=== PATIENT | male | born 1930 | race Caucasian/White ===

== ENCOUNTER 2016-11-04 12:40 | Inpatient (IN) | payer OTHER ==
[~2016-11-04] VITALS: Ht 175.3 cm; Wt 58.8 kg
--- NOTE | ~2016-11-04 | H ---
[facility] [place] [address] HISTORY AND PHYSICAL Name: MARISOL STONER Room #: 462-P ADM IN M.R.#: [id number] Admission: 11/04/16 Attend Phys: Shyam Barksdale MD Discharge: Date of : 32 Report #: [id number] THIS REPORT FOR: //name// CC: FAM unknown Shyam Barksdale DATE OF SERVICE: 11/04/2016 CHIEF COMPLAINT: Near syncope. 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 The patient normally goes to [facility] for his treatment. The patient apparently was ____ pulmonary rehabilitation at [facility]. He started experiencing hot flashes and nausea. He states he started walking towards the restroom. On his way to the restroom, he started feeling having also lightheadedness and generalized weakness and he thought he was going to pass out. No history of any chest pain. No shortness of breath. No new visual symptoms. He has macular degeneration, he is legally blind. He denied any focal weakness. On arrival to the Emergency Room, his initial blood pressure was 85/48. The patient was given 500 mL of normal saline bolus. Subsequent workup showed elevated BNP and the patient was given a dose of Lasix 40 mg IV. His chest x-ray showed no acute process. The patient is awake and alert at present and denies any complaint at present. The patient has had at least 4 admissions over the last few months. [facility] and then an episode of pneumonia and then he had another admission, which was possibly for a weak heart. PAST MEDICAL HISTORY: Significant for hypertension, history of giant cell arteritis on steroids. No history of any peptic ulcer disease or bleeding disorder. History of a weak heart. No CVA. 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 ALLERGIES: No known drug allergy. HOME MEDICATIONS: The patient states he takes prednisone 5 mg once a day. He also takes multiple medications about 2 pages long; he does not remember his medications. SOCIAL HISTORY: He is a past smoker, stopped smoking in March of this year. No history of alcohol abuse or illicit drug abuse. [facility] [address] [place] [address] HISTORY AND PHYSICAL Name: MARISOL STONER Room #: 462-P [facility] [place] ..#: [id number] Admission: 11/04/16 Attend Phys: Shyam Barksdale MD Discharge: Date of : 31 Report #: [id number] FAMILY HISTORY: Significant for hypertension. REVIEW OF SYSTEMS: CONSTITUTIONAL: He has lost around 30 pounds over the last 3 years. No fever, no chills. EYES: He is legally blind. THROAT: Denies any sore throat. CARDIOVASCULAR: As above. He had some mild dizziness prior to the near syncopal episode. No chest pain, no shortness of breath. RESPIRATORY: No cough or expectoration. GASTROINTESTINAL: He did have nausea. No vomiting, no abdominal pain, no diarrhea. GENITOURINARY: No dysuria, hematuria. NEUROLOGIC: Denies any focal numbness or weakness of the extremity. The 12-point review of system is negative other than the positive and negative dictated in the history of present illness and the review of system. PHYSICAL EXAMINATION: VITAL SIGNS: Blood pressure 107/44, heart rate of 54 per minute, afebrile. GENERAL: The patient is awake and alert, not in acute respiratory distress. EYES: Pupils equal, reactive to light, nonicteric, conjunctivae. Throat appears normal. NECK: Supple, no JVD, no bruit, no lymphadenopathy. CARDIOVASCULAR SYSTEM: S1, S2, negative S3. No murmur. CHEST: Bilateral air entry present. Clear on auscultation. ABDOMEN: Soft, bowel sounds present, no mass, no organomegaly, no tenderness. PERIPHERY: No pedal edema. No calf tenderness. Dorsalis pedis 1+. NEUROLOGICAL: No gross motor or sensory deficit. LABORATORY DATA: Reviewed. 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 Chest x-ray showed no acute abnormality. White count is 12.5, normal hemoglobin, hematocrit and platelets. UA is essentially negative. Chemistry showed a BUN of 13 and creatinine 1.5. AST and ALT are within normal limit. Troponin 0.04. BNP is 2331. TSH is 2.36. Lipase is 155. ASSESSMENT AND PLAN: 1. Near syncope. Etiology is not clear. It could be a vasovagal syncope following his episode of nausea. Rule out orthostatic hypotension. The patient will be admitted to telemetry. We will have serial troponin to rule out cardiac event. We will also check on his orthostatic vital signs. We will obtain an echocardiogram to evaluate his LV function and carotid Dopplers to rule out any carotid stenosis. Cardiology will be consulted. We will obtain records from [facility]. 2. History of giant cell arteritis, on prednisone, which will be continued. 3. Deep venous thrombosis prophylaxis. He will be on SCD on the leg for deep [address] [address] HISTORY AND PHYSICAL Name: MARISOL STONER Room #: 462-P ADM IN M.R.#: [id number] Admission: 11/04/16 Attend Phys: Shyam Barksdale MD Discharge: Date of : 31 Report #: [id number] venous thrombosis prophylaxis. 4. History of hypertension, coronary artery disease and cardiomyopathy. We will obtain an echo to evaluate his LV function. We will try to obtain his medication list from his family. We will repeat his EKG in the morning. Treatment plan has been explained to the patient in detail. By: 1802 1839 Shyam Barksdale MD /nt
--- NOTE | ~2016-11-04 | EKG ---
[place] [address] [address] [facility] [place] [address] ELECTROCARDIOGRAM REPORT Name: MARISOL STONER Room #: 462-P ADM IN M.R.#: [id number] Admission: 11/04/16 Attend Phys: Shyam Barksdale MD Discharge: Date of : 31 Report #: [id number] THIS REPORT FOR: //name// 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
--- NOTE | ~2016-11-04 | EKG ---
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: MONY : 1930 Requested By: Shyam Barksdale Order Number: [id number] MD: Ramiro Casanova Measurements Intervals [place] Rate: 54 P: 79 ID: [id number] QRS: -72 QRSD: 158 T: 134 QT: 511 QTc: 485 Interpretive Statements Sinus rhythm Right bundle branch block Left anterior hemiblock Borderline prolonged QT interval Baseline wander in lead(s) V1 No previous ECG available for comparison Electronically Signed On 11-05-2016 8:49:51 CDT by Ramiro Casanova [email or web address] <ELECTRONICALLY SIGNED> By: Ramiro Casanova MD, [facility] 11/05/16 0849 4 Ramiro Casanova MD, [facility] /EPI
--- NOTE | ~2016-11-04 | 2DMMODE ---
[facility] [place] [address] 2 D/M-MODE ECHOCARDIOGRAM Name: MARISOL STONER Room #: 462-P ADM IN M.R.#: [id number] Admission: 11/04/16 Attend Phys: Josefina Fontenot Discharge: Date of : 32 Date of Service: 11/05/16 0823 Report #: [id number] THIS REPORT FOR: //name// APPROVED REPORT Study performed: 11/05/2016 07:05:37 EXAM: Comprehensive 2D, Doppler, and color-flow Echocardiogram Patient Location: Bedside Room #: 462 Status: routine BSA: 1.73 HR: 55 bpm BP: 117/47 mmHg Rhythm: PVC's Other Information Study Quality: Adequate/Low parasternal window Indications Near syncope, LV function. Hx: [place], stents, COPD 2D Dimensions RVDd: 39.70 mm LVEF(%): 28.01 (>50%) IVSd: 9.85 (7-11mm) LVOT Diam: 20.88 (18-24mm) LVDd: 59.00 mm PWd: 9.81 (7-11mm) LVDs: 51.16 (25-40mm) Aortic Root: 35.15 mm Dooley's LVEF: 28.01 % Volumes Left Atrial Volume (Systole) Single Plane 4CH: 30.04 mL Single Plane 2CH: 46.35 mL LA ESV Index: 23.00 mL/m2 Aortic Valve AoV Peak Cordell.: 1.72 m/s AO Peak Gr.: 11.89 mmHg LVOT Max P.25 mmHg AO Mean Gr.: 5.30 mmHg AO V2 Mean: 1.09 m/s LVOT Max V: 0.75 m/s AO V2 VTI: 33.25 cm POPEYE Vmax: 1.49 cm2 Mitral Valve [facility] [place] [place] [address] 2 D/M-MODE ECHOCARDIOGRAM Name: MARISOL STONER Room #: 462-P [facility] IN M.R.#: [id number] Admission: 11/04/16 Attend Phys: Josefina Fontenot Discharge: Date of : 32 Date of Service: 11/05/16 0823 Report #: [id number] E/A Ratio: 0.6 MV Decel. Time: 372.09 ms MV E Max Cordell.: 0.58 m/s MV A Cordell.: 0.90 m/s MV PHT: 107.91 ms IVRT: 179.93 ms Pulmonary Valve PV Peak Cordell.: 0.83 m/s PV Peak Gr.: 2.73 mmHg Pulmonary Vein P Vein S: 0.42 m/s P Vein A: 0.24 m/s P Vein D: 0.31 m/s P Vein A Dur.: 106.1 msec P Vein S/D Ratio: 1.35 Tricuspid Valve TR Peak Cordell.: 2.61 m/s RAP Estimate: 5.00 mmHg TR Peak Gr.: 27.30 mmHg PA Pressure: 32.00 mmHg Left Ventricle Left ventricle is mildly dilated. There is global hypokinesis of the left ventricle. There is normal left ventricular wall thickness. Left ventricular systolic function is severely decreased. LVEF 25%. Mild diastolic dysfunction is present (impaired relaxation pattern). Right Ventricle The right ventricle is normal size. The right ventricular systolic function is normal. Atria The left atrium size is normal. The right atrium size is normal. Aortic Valve The aortic valve is difficult to visualize. Aortic valve is calcified. Mild aortic regurgitation. Mild aortic stenosis. Calculated POPEYE by the continuity equation is 1.5cm2. Mitral Valve Mild mitral annular calcification. No mitral regurgitation. Tricuspid Valve The tricuspid valve is normal in structure. There is trace tricuspid [facility] [address] [place] [address] 2 D/M-MODE ECHOCARDIOGRAM Name: MARISOL STONER Room #: 462-P [facility] IN [facility].#: [id number] Admission: 11/04/16 Attend Phys: Josefina Fontenot Discharge: Date of : 32 Date of Service: 11/05/16 0823 Report #: [id number] regurgitation. The right atrial pressure is estimated at 5 mmHg. There is mild pulmonary hypertension with an estimated PAP of 32mmHg. Pulmonic Valve Pulmonic valve is not well visualized. Great Vessels The aortic root is normal in size. Ascending aorta is not well visualized. IVC is normal in size and collapses >50% with inspiration. Pericardium There is no pericardial effusion. <Conclusion> Left ventricular systolic function is severely decreased. There is global hypokinesis of the left ventricle. LVEF 25%. Mild diastolic dysfunction is present (impaired relaxation pattern). The aortic valve is difficult to visualize. Aortic valve is calcified. Mild aortic stenosis and insufficiency. Calculated POPEYE by the continuity equation is 1.5cm2. Mild aortic regurgitation. No mitral regurgitation. Pulmonary artery pressure of 35mmHg There is no pericardial effusion. <ELECTRONICALLY SIGNED> By: Ramiro Casanova MD, FACC 11/05/16822 2 2 Ramiro Casanova MD, FACC /INF
[2016-11-04 12:51] VITALS: BP 85/48
[2016-11-04 14:39] LABS: HEMATOCRIT 37.4 % (42.0-52.0); HEMOGLOBIN 12.3 gm/dL (14.0-18.0); MCH 30.4 pg (26.0-34.0); MCV 92.1 fL (80.0-100.0); RBC 4.06 mil/uL (4.50-6.00); RDW 15.9 % (10.5-14.5); WBC 12.5 thou/uL (4.0-11.0)
[2016-11-04 14:46] LABS: ANION GAP 9 mmol/L (7-16); BUN 39 mg/dL (7-18); CALCIUM 9.4 mg/dL (8.5-10.1); CHLORIDE 104 mmol/L (98-107); CO2 29 mmol/L (21-32); CREATININE 1.5 mg/dL (0.7-1.3); GLUCOSE 173 mg/dL (74-106); POTASSIUM 4.9 mmol/L (3.5-5.1); SODIUM 142 mmol/L (136-145)
[2016-11-04 14:55] LABS: ALBUMIN 3.4 g/dL (3.4-5.0); ALKALINE PHOSPHATASE 105 U/L (46-116); SGOT 27 U/L (15-37); SGPT 34 U/L (30-65); TOTAL BILIRUBIN 0.4 mg/dL (<0.1-1.0); TOTAL PROTEIN 7.1 g/dL (6.4-8.2); TROPONIN-I < 0.04 ng/mL (<0.04-0.07)
[2016-11-04 17:25] LABS: URINE BILIRUBIN NEGATIVE (Negative); URINE BLOOD NEGATIVE (Negative); URINE COLOR YELLOW; URINE GLUCOSE-RANDOM* NEGATIVE (Negative); URINE KETONES NEGATIVE (Negative); URINE LEUKOCYTES-REFLEX NEGATIVE (Negative); URINE PROTEIN (DIPSTICK) NEGATIVE (Negative); URINE SPECIFIC GRAVITY 1.015 (1.003-1.035); URINE UROBILINOGEN 0.2 E.U./dl (0.2-1.0)
[2016-11-04 17:48] VITALS: BP 107/44
[2016-11-04 18:05] VITALS: BP 121/74
[2016-11-04 19:36] VITALS: BP 140/66
[2016-11-05] VITALS (10 sets, daily range): BP systolic 103–143; BP diastolic 47–61
[2016-11-05] MEDS ORDERED: AMMONIUM LACTA225 GM TOP (02:32)
[2016-11-05] MEDS ORDERED: ASPIR 8181 MG PO (02:33)
[2016-11-05] MEDS ORDERED: ATORVASTATIN CA40 MG PO (02:34)
[2016-11-05] MEDS ORDERED: PULMICORT0.5 MG/22 INH (02:35)
[2016-11-05] MEDS ORDERED: COREG12.5 MG PO (02:35)
[2016-11-05] MEDS ORDERED: PLAVIX 75 MG TA75 M1 PO (02:36)
[2016-11-05] MEDS ORDERED: B12INJ IM (02:36)
[2016-11-05] MEDS ORDERED: DORZOLAMIDE HCL10 ML OPHTHALMIC (02:38)
[2016-11-05] MEDS ORDERED: FOLIC ACID1 MG PO (02:38)
[2016-11-05 02:53] LABS: BASOPHILS 0.3 % (0.0-2.0); EOSINOPHILS 0.3 % (0.0-3.0); HEMATOCRIT 35.8 % (42.0-52.0); HEMOGLOBIN 11.9 gm/dL (14.0-18.0); LYMPHOCYTES 20.6 % (24.0-44.0); MCH 30.6 pg (26.0-34.0); MCHC 33.1 g/dL (28.0-37.0); MCV 92.4 fL (80.0-100.0); MONOCYTES 6.7 % (1.0-8.0); PLATELET COUNT 189 thou/uL (150-400); POLYS 72.1 % (36.0-66.0); RBC 3.88 mil/uL (4.50-6.00); RDW 15.4 % (10.5-14.5); WBC 9.7 thou/uL (4.0-11.0)
[2016-11-05] MEDS ORDERED: LASIX 20 MG TAB20 MG PO (02:53)
[2016-11-05 02:54] LABS: MANUAL DIFF NO
[2016-11-05] MEDS ORDERED: LISINOPRIL20 MG PO (02:54)
[2016-11-05] MEDS ORDERED: PREDNISONE 5 MG5 M1 PO (02:56)
[2016-11-05] MEDS ORDERED: METHOTREXATE 22.5 MG PO (02:56)
[2016-11-05] MEDS ORDERED: NITROGLYCERIN0.4 MG SUBLING (02:56)
[2016-11-05] MEDS ORDERED: SPIRONOLACTONE25 M1 PO (02:57)
[2016-11-05] MEDS ORDERED: TRAMADOL 50 MG50 MG PO (02:58)
[2016-11-05] MEDS ORDERED: CENTRUM SILVER1 EAC2 PO (02:59)
[2016-11-05 03:12] LABS: ANION GAP 5 mmol/L (7-16); BUN 40 mg/dL (7-18); CHLORIDE 101 mmol/L (98-107); CO2 31 mmol/L (21-32); CREATININE 1.6 mg/dL (0.7-1.3); GLUCOSE 210 mg/dL (74-106); POTASSIUM 4.8 mmol/L (3.5-5.1); SODIUM 137 mmol/L (136-145); TROPONIN-I < 0.04 ng/mL (<0.04-0.07)
[2016-11-06 03:10] VITALS: BP 120/59
[2016-11-06 06:22] LABS: ALBUMIN 3.3 g/dL (3.4-5.0); CALCIUM 9.2 mg/dL (8.5-10.1); CREATININE 1.4 mg/dL (0.7-1.3); PHOSPHORUS 3.9 mg/dL (2.5-4.9); POTASSIUM 4.8 mmol/L (3.5-5.1)
[2016-11-06 07:40] VITALS: BP 147/52
[2016-11-06 13:15] VITALS: BP 147/52
[2016-11-06 15:20] VITALS: BP 147/52
== END 2016-11-06 14:29 | disposition home or self-care (01) | DRG 312 ==
LOC: ER 12:40 → 4W 17:35 → EROBS 17:35 → 4W 18:04
PROVIDERS: Emergency Medicine; Hospitalist; Internal Medicine
DX: R55 Syncope and collapse (principal); I50.20 Unspecified systolic (congestive) heart failure; J44.9 Chronic obstructive pulmonary disease, unspecified; I11.0 Hypertensive heart disease with heart failure; I25.10 Atherosclerotic heart disease of native coronary artery without angina pectoris; E78.5 Hyperlipidemia, unspecified; M31.6 Other giant cell arteritis; H35.30 Unspecified macular degeneration; H54.8 Legal blindness, as defined in USA; Z87.01 Personal history of pneumonia (recurrent); Z90.89 Acquired absence of other organs; Z89.421 Acquired absence of other right toe(s); I25.2 Old myocardial infarction; Z95.5 Presence of coronary angioplasty implant and graft; Z87.891 Personal history of nicotine dependence; Z82.49 Family history of ischemic heart disease and other diseases of the circulatory system; Z88.0 Allergy status to penicillin; Z88.8 Allergy status to other drugs, medicaments and biological substances
CPT/HCPCS: 10045